=== PATIENT | male | born 1990 | race Caucasian/White ===

== ENCOUNTER 2018-05-19 19:26 | Emergency (ER) | payer OTHER ==
[~2018-05-19] VITALS: Ht 180.3 cm; Wt 81.7 kg
[2018-05-19] MEDS ORDERED: Triamcinolone A15 G3 TOP (19:57)
== END 2018-05-19 20:02 | disposition home or self-care (01) ==
LOC: ER 19:26
DX: L23.7 Allergic contact dermatitis due to plants, except food (principal)
CPT/HCPCS: 99283

== ENCOUNTER 2018-05-24 19:02 | Emergency (ER) | payer OTHER ==
[~2018-05-24] VITALS: Ht 180.3 cm; Wt 81.7 kg
[~2018-05-24 19:02] MED LIST: Triamcinolone A15 G3 TOP
== END 2018-05-24 20:27 | disposition home or self-care (01) ==
LOC: ER 19:02
DX: L23.7 Allergic contact dermatitis due to plants, except food (principal)
CPT/HCPCS: 96372; 99283-25; J3301

== ENCOUNTER 2019-02-16 16:17 | Emergency (ER) | payer OTHER ==
[~2019-02-16] VITALS: Ht 180.3 cm; Wt 83.9 kg
[2019-02-16] MEDS ORDERED: IBUP800 PO (17:09)
[2019-02-16] MEDS ORDERED: Ultram50 MG PO (17:09)
[2019-02-16] MEDS ORDERED: CEPH500 PO (17:49)
== END 2019-02-16 18:03 | disposition home or self-care (01) ==
LOC: ER 16:17
DX: S67.197A Crushing injury of left little finger, initial encounter (principal); S61.217A Laceration without foreign body of left little finger without damage to nail, initial encounter; W23.0XXA Caught, crushed, jammed, or pinched between moving objects, initial encounter
CPT/HCPCS: 12002; 73140; 90471; 90714; 99283-25

== ENCOUNTER 2019-02-26 10:58 | Emergency (ER) | payer OTHER ==
[~2019-02-26] VITALS: Ht 180.3 cm; Wt 81.7 kg
[~2019-02-26 10:58] MED LIST changes: +CEPH500 PO; +IBUP800 PO; +Ultram50 MG PO
== END 2019-02-26 11:50 | disposition home or self-care (01) ==
LOC: ER 10:58
DX: S61.217D Laceration without foreign body of left little finger without damage to nail, subsequent encounter (principal); W23.0XXD Caught, crushed, jammed, or pinched between moving objects, subsequent encounter

== ENCOUNTER 2019-05-03 09:02 | Emergency (ER) | payer OTHER ==
[~2019-05-03] VITALS: Ht 180.3 cm; Wt 83.9 kg
[2019-05-03] MEDS ORDERED: Loratadine10 MG PO (10:24)
== END 2019-05-03 10:34 | disposition home or self-care (01) ==
LOC: ER 09:02
DX: J02.9 Acute pharyngitis, unspecified (principal)
CPT/HCPCS: 87081; 87430; 99283; J1100

== ENCOUNTER → 2020-02-23 | Outpatient (CLI) | payer OTHER ==
[~2020-02-23] MED LIST changes: +Loratadine10 MG PO
[2020-02-25 07:09] LABS: HIV SCREEN 4TH GENERATION WRFX Non Reactive (Non Reactive)
[2020-02-27 10:07] LABS: CHLAMYDIA TRACHOMATIS, NAA Negative (Negative); NEISSERIA GONORRHOEAE, NAA Negative (Negative)
== END | disposition home or self-care (01) ==
LOC: LAB SHORT 19:31 → LAB 19:31
PROVIDERS: Nurse Practitioner Family
DX: Z11.59 Encounter for screening for other viral diseases (principal); N50.819 Testicular pain, unspecified
CPT/HCPCS: 86592; 86695; 86696; 86803; 87086; 87389; 87491; 87591